=== PATIENT | female | born 1955 | race Caucasian/White ===

== ENCOUNTER 2021-06-04 11:16 | Inpatient (IN) | payer OTHER ==
[~2021-06-04] VITALS: Ht 160 cm; Wt 42.6 kg
[~2021-06-04 11:16] MED LIST: K-DUR TAB 20 M20 MEQ PO
[2021-06-04 12:35] LABS: HEMOGLOBIN 8.4 gm/dl (12.3-15.3); RED BLOOD COUNT 2.87 M/UL (4.00-5.10); WHITE BLOOD COUNT 4.6 K/UL (4.5-11.0)
[2021-06-04 13:16] LABS: BUN/CREATININE RATIO 47 (0-10)
[2021-06-04] MEDS ORDERED: CEFDINIR300 MG PO (15:37)
[2021-06-04] MEDS ORDERED: FLONASE ALLER15.8 ML (15:38)
[2021-06-04] MEDS ORDERED: NEURONTIN400 MG PO (15:38)
[2021-06-04] MEDS ORDERED: HYDROCODON-ACE1 EAC6 PO (15:39)
[2021-06-04] MEDS ORDERED: PROTONIX40 MG PO (15:40)
[2021-06-04] MEDS ORDERED: LISINOPRIL5 MG PO (15:40)
[2021-06-04] MEDS ORDERED: VITAMIN B-121000 MC3 PO (15:41)
[2021-06-04] MEDS ORDERED: PROAIR HFA8.5 GM INH (15:41)
[2021-06-04] MEDS ORDERED: FAMOTIDINE20 MG PO (15:41)
[2021-06-04] MEDS ORDERED: SUCRALFATE1 GM PO (15:42)
[2021-06-04] MEDS ORDERED: ZOFRAN 4 MG TAB4 MG PO (15:42)
[2021-06-04] MEDS ORDERED: DOCUSATE SODIU100 MG PO (15:43)
[2021-06-04] MEDS ORDERED: LORATADINE10 MG PO (15:43)
[2021-06-04] MEDS ORDERED: CYCLOBENZAPRINE10 MG PO ×2 (15:44→15:45)
[2021-06-04 16:07] LABS: HEMOGLOBIN 6.9 gm/dl (12.3-15.3)
[2021-06-05 06:59] LABS: HEMOGLOBIN 9.6 gm/dl (12.3-15.3); RED BLOOD COUNT 3.46 M/UL (4.00-5.10)
[2021-06-05 07:29] LABS: BUN/CREATININE RATIO 72 (0-10)
[2021-06-05 12:36] LABS: HEMOGLOBIN 9.6 gm/dl (12.3-15.3)
[2021-06-06 04:20] LABS: HEMOGLOBIN 8.3 gm/dl (12.3-15.3)
[2021-06-06 04:28] LABS: RED BLOOD COUNT 2.95 M/UL (4.00-5.10); WHITE BLOOD COUNT 2.7 K/UL (4.5-11.0)
[2021-06-06 04:38] LABS: BUN/CREATININE RATIO 32 (0-10)
--- NOTE | 2021-06-06 13:55 | NUR ---
Received called from Dr. Osborne to check on patient and lab results. New order for soft diet.
[2021-06-06 14:00] LABS: HEMOGLOBIN 8.5 gm/dl (12.3-15.3); RED BLOOD COUNT 3.02 M/UL (4.00-5.10); WHITE BLOOD COUNT 2.8 K/UL (4.5-11.0)
[2021-06-07 04:24] LABS: HEMOGLOBIN 8.3 gm/dl (12.3-15.3); RED BLOOD COUNT 3.01 M/UL (4.00-5.10)
[2021-06-07 04:46] LABS: BUN/CREATININE RATIO 19 (0-10)
[2021-06-08 06:02] LABS: HEMOGLOBIN 8.4 gm/dl (12.3-15.3); RED BLOOD COUNT 2.96 M/UL (4.00-5.10); WHITE BLOOD COUNT 4.5 K/UL (4.5-11.0)
[2021-06-08 06:41] LABS: BUN/CREATININE RATIO 23 (0-10)
[2021-06-08] MEDS ORDERED: K-TAB ER20 MEQ PO (17:13)
[2021-06-08] MEDS ORDERED: POLYETHYLENE GL17 GM PO (17:13)
[2021-06-08] MEDS ORDERED: DIFLUCAN100 MG PO (17:25)
[2021-06-08] MEDS ORDERED: OMNICEF 300 MG300 MG PO (18:46)
[2021-06-08] MEDS ORDERED: FERROUS GLUCON324 M1 PO (18:47)
[2021-06-08] MEDS ORDERED: LOPRESSOR 25 MG25 MG PO (19:34)
== END 2021-06-08 20:00 | disposition home or self-care (01) | DRG 378 ==
LOC: ER1 11:16 → MED SURG 4 15:03 → CDU 15:03 → MED SURG 4 16:52
PROVIDERS: Internal Medicine Gastroenterology; Physician Assistant; ADMIT Internal Medicine
PROC: 30233N1 Transfusion of Nonautologous Red Blood Cells into Peripheral Vein, Percutaneous Approach (ICD-10-PCS; 2021-06-04)
PROC: 0DJ08ZZ Inspection of Upper Intestinal Tract, Via Natural or Artificial Opening Endoscopic (ICD-10-PCS; 2021-06-05)
PROC: 0W3P8ZZ Control Bleeding in Gastrointestinal Tract, Via Natural or Artificial Opening Endoscopic (ICD-10-PCS; principal; 2021-06-05 11:41)
DX: K26.0 Acute duodenal ulcer with hemorrhage (principal); D62 Acute posthemorrhagic anemia; E44.0 Moderate protein-calorie malnutrition; D61.818 Other pancytopenia; F11.20 Opioid dependence, uncomplicated; Z68.1 Body mass index [BMI] 19.9 or less, adult; Z20.822 Contact with and (suspected) exposure to COVID-19; K21.9 Gastro-esophageal reflux disease without esophagitis; F17.200 Nicotine dependence, unspecified, uncomplicated; K27.4 Chronic or unspecified peptic ulcer, site unspecified, with hemorrhage; I10 Essential (primary) hypertension; G62.9 Polyneuropathy, unspecified; J30.9 Allergic rhinitis, unspecified; E87.6 Hypokalemia; Z96.652 Presence of left artificial knee joint; K59.00 Constipation, unspecified; Z90.49 Acquired absence of other specified parts of digestive tract; Z90.710 Acquired absence of both cervix and uterus; Z98.890 Other specified postprocedural states; Z88.8 Allergy status to other drugs, medicaments and biological substances; Z83.6 Family history of other diseases of the respiratory system; Z82.0 Family history of epilepsy and other diseases of the nervous system; Z79.899 Other long term (current) drug therapy
CPT/HCPCS: 36415; 80048; 80053; 81001; 82270; 82550; 82553; 83540; 83550; 83690; 84484; 85014; 85018; 85025; 86850; 86900; 86901; 86920; 93005; 96374; 96375; 99285; C9113; J0171; J0696; J1364; J2250; J2405; J3010; J7030; P9016; U0002